=== PATIENT | male | born 1970 | race Caucasian/White ===

== ENCOUNTER 2024-05-09 09:53 | Inpatient (IN) ==
--- NOTE | 2024-04-13 13:34 | PAT Medication Instructions ---
Medication Instructions Date of Service April 13, 2024 Home Medications Medication Instructions Recorded magnesium oxide 400 mg (241.3 mg 400 mg PO HS #30 tabs 02/24/22 magnesium) tablet hydrochlorothiazide 12.5 mg tablet 12.5 mg PO QAM #90 tabs 02/07/24 metformin 500 mg tablet 500 mg PO BID #200 tabs 02/10/24 gabapentin 600 mg tablet 600 mg PO BID 90 days #180 tabs 02/18/24 tizanidine 4 mg tablet 4 mg PO TID #90 tabs 02/28/24 atorvastatin 40 mg tablet 40 mg PO QPM #90 tabs 03/16/24 lisinopril 20 mg tablet 20 mg PO QAM #90 tabs 03/21/24 carbamazepine 100 mg chewable 300 mg (3 x 100 mg) PO BID 90 days 03/28/24 tablet #540 tabs ascorbic acid (vitamin C) 500 mg capsule 500 mg PO QAM magnesium oxide 400 mg (241.3 mg magnesium) tablet 400 mg PO HS cholecalciferol (vitamin D3) 50 mcg (2,000 unit) tablet (Vitamin D3) 50 mcg PO QPM aspirin 81 mg tablet,delayed release 81 mg PO QAM cyanocobalamin (vitamin B-12) 2,000 mcg tablet,extended release (Vitamin B-12 ER) 2,000 mcg PO QAM ofatumumab 20 mg/0.4 mL subcutaneous pen injector (Kesimpta Pen) 20 mg subcut Q30D duloxetine 60 mg capsule,delayed release 60 mg PO QAM omeprazole 40 mg capsule,delayed release 40 mg PO QAM hydrochlorothiazide 12.5 mg tablet 12.5 mg PO QAM metformin 500 mg tablet 500 mg PO BID gabapentin 600 mg tablet 600 mg PO BID tizanidine 4 mg tablet 4 mg PO TID atorvastatin 40 mg tablet 40 mg PO QPM lisinopril 20 mg tablet 20 mg PO QAM carbamazepine 100 mg chewable tablet 300 mg (3 x 100 mg) PO BID meloxicam 7.5 mg tablet 7.5 - 15 mg PO DAILY PRN ASK your surgeon for instructions meloxicam 7.5 mg tablet 7.5 - 15 mg PO DAILY PRN ASK your prescriber and surgeon aspirin 81 mg tablet,delayed release 81 mg PO QAM ofatumumab 20 mg/0.4 mL subcutaneous pen injector (Kesimpta Pen) 20 mg subcut Q30D DO NOT take the morning of surgery ascorbic acid (vitamin C) 500 mg capsule 500 mg PO QAM cyanocobalamin (vitamin B-12) 2,000 mcg tablet,extended release (Vitamin B-12 ER) 2,000 mcg PO QAM hydrochlorothiazide 12.5 mg tablet 12.5 mg PO QAM metformin 500 mg tablet 500 mg PO BID lisinopril 20 mg tablet 20 mg PO QAM carbamazepine 100 mg chewable tablet 300 mg (3 x 100 mg) PO BID Take morning of surgery With a small sip of water, OTHERWISE NOTHING TO EAT OR DRINK AFTER MIDNIGHT: duloxetine 60 mg capsule,delayed release 60 mg PO QAM omeprazole 40 mg capsule,delayed release 40 mg PO QAM gabapentin 600 mg tablet 600 mg PO BID tizanidine 4 mg tablet 4 mg PO TID Take evening before surgery magnesium oxide 400 mg (241.3 mg magnesium) tablet 400 mg PO HS cholecalciferol (vitamin D3) 50 mcg (2,000 unit) tablet (Vitamin D3) 50 mcg PO QPM metformin 500 mg tablet 500 mg PO BID gabapentin 600 mg tablet 600 mg PO BID tizanidine 4 mg tablet 4 mg PO TID atorvastatin 40 mg tablet 40 mg PO QPM carbamazepine 100 mg chewable tablet 300 mg (3 x 100 mg) PO BID Other Notes If you have any questions please call us at [phone] or [phone] or [phone] or [phone]
--- NOTE | 2024-04-19 10:19 | Anesthesiology Consultation ---
Date of Service April 19, 2024 Assessment & Plan (1) Encounter for pre-operative examination: - Check BSG AM DOS - Infectious disease screening: Per assessment on 04/19/24: No known recent infectious disease contacts or current infectious disease symptoms. - Hx of concussion 03/2024: Patient reports that patient had ER visit 04/03/24 after his wheelchair "flipped backwards" causing patient to strike head on ground + LOC. ER records received. Head imaging negative and symptoms felt to be consistent with concussion. "His cervical spine is cleared by [place] C-spine rule." Patient was discharged with supportive care. > Patient reports at subsequent PAT visit 04/19/24 that he does still have some residual worsening of his baseline neck and left shoulder pain. Feels well/at baseline otherwise. Denies headache, N/V. Chart Review Chart Review: Acceptable Risk for Surgery (pending evaluation DOS) and Patient seen in Pre Admission Testing Teaching & Discussion Pre-Anesthesia Teaching/Discussion Notes: Instructed NPO after midnight before surgery,except medications with 15 cc of water. Medication instructions provided according to the PAT guidelines. History Surgery Operation Date: 05/09/24 11:35 Proposed Procedures p L4-L5 Lumbar Interbody Fusion with Interbody Cage and Posterior Instrumentation, with Spinal Cord Monitoring - Carlo Rene MD Height/Weight Height: 5 ft 7 in Weight: 104.3 kg Allergies Allergy/AdvReac Type Severity Reaction Status Date / Time No Known Allergies Allergy Verified 04/11/24 07:41 Medications Home Medications Medication Instructions Recorded Confirmed Last Taken ascorbic acid (vitamin C) 500 mg 500 mg PO QAM 05/01/20 04/11/24 02/06/24 08:00 capsule magnesium oxide 400 mg (241.3 mg 400 mg PO HS #30 tabs 02/24/22 04/11/2410/30 08:00 magnesium) tablet cholecalciferol (vitamin D3) 50 50 mcg PO QPM 08/13/22 04/11/24 02/06/24 08:00 mcg (2,000 unit) tablet (Vitamin D3) aspirin 81 mg tablet,delayed 81 mg PO QAM 10/20/22 04/11/24 02/07/24 08:00 release cyanocobalamin (vitamin B-12) 2,000 mcg PO QAM 10/20/22 04/11/24 02/06/24 08:00 2,000 mcg tablet,extended release (Vitamin B-12 ER) ofatumumab 20 mg/0.4 mL 20 mg subcut Q30D 10/20/22 04/11/24 01/23/24 08:00 subcutaneous pen injector (Kesimpta Pen) duloxetine 60 mg capsule,delayed 60 mg PO QAM 01/19/24 04/11/24 02/07/24 08:00 release hydrochlorothiazide 12.5 mg tablet 12.5 mg PO QAM #90 tabs 02/07/24 04/11/24 02/07/24 08:00 metformin 500 mg tablet 500 mg PO BID #200 tabs 02/10/24 04/11/24 Unknown gabapentin 600 mg tablet 600 mg PO BID 90 days #180 tabs 02/18/24 04/11/24 Unknown tizanidine 4 mg tablet 4 mg PO TID #90 tabs 02/28/24 04/11/24 Unknown atorvastatin 40 mg tablet 40 mg PO QPM #90 tabs 03/16/24 04/11/24 Unknown lisinopril 20 mg tablet 20 mg PO QAM #90 tabs 03/21/24 04/11/24 Unknown carbamazepine 100 mg chewable 300 mg (3 x 100 mg) PO BID 90 days 03/28/24 04/11/24 Unknown tablet #540 tabs meloxicam 7.5 mg tablet 7.5 - 15 mg PO DAILY PRN Pain 04/11/24 04/11/24 Unknown omeprazole 40 mg capsule,delayed 40 mg PO QAM #90 caps 04/14/24 Unknown release Past Medical History Medical History Cervical spinal stenosis Chronic back pain Claustrophobia Degenerative spondylolisthesis Diabetes type 2, controlled Erectile dysfunction Foot drop, right Gait abnormality Right foot drop and MS Uses wheelchair, cane, and walker GERD (gastroesophageal reflux disease) History of COVID-2021 (home test): "moderate symptoms" > resolved Hx of migraines Hyperlipidemia Hypertension Lumbar facet joint syndrome Lumbar spondylosis Multiple sclerosis Taking carbemazepine to address MS associated muscle cramps and spasms per [facility] neuro records Spinal stenosis of lumbar region Umbilical hernia Exercise / Class Metabolic Activity III < 4 Walking/Shop/Light housework (uses walker/wheelchair) Past Family History Family History Aunt Stroke Uncle Stroke Myocardial infarction Grandmother (Maternal) Diabetes Grandfather (Paternal) Diabetes Mother Unknown family medical history Denies family history of Ovarian cancer Prostate cancer Breast cancer Colorectal cancer Past Surgical History Surgical History History of anesthesia problem Awareness with MRI with remote sedation (made him very anxious) He receives sedation for annual MRIs 2/2 severe claustrophobia MRI with sedation 02/08/24 without issue. History of MRI of brain and brain stem with sedation History of MRI of cervical spine MRI brain and c-spine 02/2024 under [facility]; no issues Hx of colonoscopy Past Anesthesia History No Family Hx of Anesthesia Complications and Other (Awareness with MRI with remote sedation (made him very anxious) He receives sedation for annual MRIs 2/2 severe claustrophobia MRI with sedation 02/08/24 without issue. ) History of PONV No Hx of PONV and No Hx of Motion Sickness Social History Smoking Status: Never smoker Do You Dip or Chew Tobacco: No Hx Alcohol Use: No Hx Substance Use: No Review of Systems Patient denies chest pain, shortness of breath, fever, chills, cough, wheezing, palpitations. Physical Exam Vital Signs BP 116/77 P 85 TEMP 97.8 SP02 95%RA RESP 16 Physical Mildly decreased cervical extension range of motion. Full TMJ range of motion. TMD > 3.5 finger breaths Mallampati Score III Dentition: full upper plate Lungs: clear throughout to auscultation Cardiac: regular rate and rhythm, no murmurs noted Spine: normal Carotid arteries: negative bruit Extremities: no LE edema Lab Results Anesthesia Preop Results Results Anesthesia Widget: WBC 6.50 K/ul (4.8-10.8) 04/19/24 Hgb 14.6 g/dl (14.0-18.0) 04/19/24 Hct 43.9 % (42.0-52.0) 04/19/24 Plt 274 K/uL (130-400) 04/19/24 Na 138 mmol/L (136-145) 04/19/24 K 3.9 mmol/L (3.5-5.1) 04/19/24 Cl 105 mmol/L (98-107) 04/19/24 CO2 25 mmol/L (21-32) 04/19/24 BUN 17 mg/dl (6-23) 04/19/24 Creat 0.91 mg/dl (0.6-1.4) 04/19/24 Glucose Level 175 mg/dl (70-99(Fasting)) H 04/19/24 PT 10.2 Seconds (9.0-12.0) 04/19/24 PTT 26 Seconds (21-31) 04/19/24 INR 0.9 (0.9-1.1) 04/19/24 HA1c 6.4 % (4.5-5.6) H 04/19/24 Blood Type A Negative 04/19/24 Antibody Screen NEGATIVE 04/19/24 Testing Electrocardiogram Date: 04/03/24 SR at 85bpm. Low QRS voltage in precordial leads. Chest X-Ray Date: 09/03/23 Findings: + NAD Other Testing CT Head Date: 04/03/24 No acute intracranial change
[~2024-05-09 09:53] MED LIST: DEXAMETHASONE SOD INJ 4 MG/ML VIAL ONE; GLYCOPYRROLATE 0.2 MG/ML VIAL ONE; LIDOCAINE 2% 2 ML VIAL/AMP(20MG/ML) INFIL ONE; MIDAZOLAM HCL 1 MG/ML 2ML VIAL ONE; ONDANSETRON INJ 2 MG/ML 2 ML VIAL ONE; PROPOFOL IV EMULSION 10 MG/ML 20 ML VIAL IV ONE; ROCURONIUM BROMIDE 10 MG/ML 5 ML VIAL IV ONE; SUGAMMADEX SODIUM 200 MG/2 ML VIAL IV ONE; fentaNYL citrate PF 100 MCG/2 ML VIAL ONE
[2024-05-09] MEDS ORDERED: ONDANSETRON INJ 2 MG/ML 2 ML VIAL IV PRN ×2 (10:25→17:20)
[2024-05-09] MEDS ORDERED: ATROPINE SULFATE 0.1 MG/ML 10ML SYR IV PRN (10:25)
[2024-05-09] MEDS ORDERED: ePHEDrine sulfate 50 MG/ML AMP IV PRN (10:25)
[2024-05-09] MEDS ORDERED: HYDROmorphone INJ 2 MG/ML SYR/VIAL IV PRN (10:25)
[2024-05-09] MEDS: LR 60ML/HR IV SCH (10:42)
[2024-05-09] MEDS: LR 15ML/HR IV SCH (10:50)
--- NOTE | 2024-05-09 11:05 | History & Physical Bridge Note ---
Date of Service May 09, 2024 History & Physical Bridge Note I have examined the patient, reviewed the History & Physical and in the interval since the performance of the History & Physical I have noted the following changes of clinical significance: no changes noted
[2024-05-09] MEDS: ceFAZolin 2000MG 2,000 MG/15 ML SYR IV SCH (11:32)
[2024-05-09] MEDS ORDERED: fentaNYL citrate PF 100 MCG/2 ML VIAL ONE ×2 (12:07→14:53)
[2024-05-09] MEDS ORDERED: ePHEDrine sulfate 50 MG/ML AMP ONE (13:07)
[2024-05-09] MEDS ORDERED: PHENYLEPHRINE HCL 10 MG/ML VIAL ONE (13:07)
[2024-05-09] MEDS: THROMBIN 5000 UNITS KIT ONE (13:36)
[2024-05-09] MEDS: BUPIVACAINE/EPINEPHRINE 0.25% 1:200,000 30 ML VIAL ONE ×2 (13:36→13:39)
[2024-05-09] MEDS: GELATIN SPONGE 12-7MM ONE (13:37)
[2024-05-09] MEDS: VANCOMYCIN HCL 1000MG/20ML VIAL ONE (13:39)
[2024-05-09] MEDS ORDERED: PROPOFOL IV EMULSION 10 MG/ML 20 ML VIAL IV ONE ×9 (14:07)
[2024-05-09] MEDS: BUPIVACAINE/EPINEPHRINE 0.5% MPF 1:200,000 30 ML VIAL ONE (16:13)
--- NOTE | 2024-05-09 17:19 | Post Operative Brief Note ---
PG Immediate Post Op with CF Date of Surgery May 09, 2024 Pre & Post Diagnosis Operation Date: 05/09/24 11:35 Pre-Op Diagnosis: Degenerative Spondylolisthesis, Degenerative Lumbar Spinal Stenosis Post-Op Diagnosis: Degenerative Spondylolisthesis, Degenerative Lumbar Spinal Stenosis I identified the patient and participated in the time-out.: Yes Procedure Operation Date: 05/09/24 11:35 Actual Procedures p L4-L5 Lumbar Decompression and Fusion and Posterior Instrumentation, with Spinal Cord Monitoring - Carlo Rene MD Surgeon Carlo Rene MD Invas Tech none Estimated Blood Loss 200 Findings Consistent with Post-Op Diagnosis Specimens Specimen Description: none per surgeon Drains Moore Catheter (Moore removed at end of case with balloon intact by Jeane Sky RN. Moore drained approximately 300ml of clear yellow urine.)
[2024-05-09] MEDS ORDERED: ONDANSETRON 4 MG OD TAB PO PRN (17:20)
[2024-05-09] MEDS ORDERED: bisacodyL 10 MG SUPP PR PRN (17:20)
[2024-05-09] MEDS ORDERED: METOCLOPRAMIDE HCL INJ 5 MG/ML 2 ML VIAL IV PRN (17:20)
[2024-05-09] MEDS ORDERED: SOD PHOSPHATE/SOD BIPHOSPHATE ENEMA 132 ML BTL PR PRN (17:20)
[2024-05-09] MEDS ORDERED: DO NOT ADMINISTER FLU VACCINE PRN (17:20)
[2024-05-09] MEDS ORDERED: LORazepam 0.5 MG TAB PO PRN (17:20)
[2024-05-09] MEDS ORDERED: NALOXONE HCL 0.4 MG/1 ML VIAL/CARP IV PRN (17:20)
[2024-05-09] MEDS ORDERED: DO NOT ADMINISTER PNEUMOCOCCAL VACCINE PRN (17:20)
[2024-05-09] MEDS ORDERED: diphenhydrAMINE Capsule 25 MG CAP PO PRN (17:20)
[2024-05-09] MEDS ORDERED: FAMOTIDINE 20 MG TAB PO PRN (17:20)
[2024-05-09] MEDS ORDERED: hydrOXYzine HCl 25 MG TAB PO PRN (17:20)
[2024-05-09] MEDS ORDERED: LORazepam 2 MG/1 ML VIAL IV PRN (17:20)
[2024-05-09] MEDS ORDERED: MAGNESIUM HYDROXIDE SUSP 30 ML UDC PO PRN (17:20)
[2024-05-09] MEDS ORDERED: PROMETHAZINE 12.5 MG/50.5 ML BAG IV PRN (17:20)
[2024-05-09] MEDS ORDERED: ALUMINUM/MAGNESIUM SUSP 30 ML UDC PO PRN (17:20)
[2024-05-09] MEDS: fentaNYL citrate PF 100 MCG/2 ML VIAL IV PRN (17:36)
--- NOTE | 2024-05-09 18:46 | Anesthesiology Progress Note ---
Date of Service May 09, 2024 Anesthesia Post Procedure Vital Signs Vital Signs: Temp Pulse Resp BP Pulse Ox O2 Del Method O2 Flow Rate 05/09/24 18:30 36.9 C 88 11 L 103/76 94 Nasal Cannula 4 05/09/24 18:20 36.9 C 88 10 L 110/76 94 Nasal Cannula 4 05/09/24 18:10 36.9 C 89 17 96/73 L 94 Nasal Cannula 4 05/09/24 18:00 36.9 C 91 H 11 L 100/77 94 Nasal Cannula 4 05/09/24 17:50 36.9 C 94 H 14 114/69 93 Nasal Cannula 4 05/09/24 17:40 88 12 133/81 94 Nasal Cannula 4 05/09/24 17:30 36.9 C 94 H 14 133/92 95 Nasal Cannula 4 05/09/24 17:20 36.9 C 93 H 15 141/92 H 96 Nasal Cannula 3 05/09/24 17:10 95 H 16 136/87 95 Oxymask 5 05/09/24 17:00 95 H 15 124/93 96 Oxymask 5 05/09/24 16:50 88 18 122/88 94 Oxymask 6 05/09/24 16:42 36.7 C 88 11 L 120/75 94 Oxymask 10 05/09/24 10:23 37.1 C 92 H 20 129/93 95 Room Air Pain Intensity Lower Back: Pain Intensity: 5 Transfer of Care Handoff Completed per policy Notes Mental Status: alert / awake / arousable and participated in evaluation Patient Amnestic to Procedure: Yes Nausea / Vomiting: adequately controlled Pain: adequately controlled Airway Patency, RR, SpO2: stable & adequate BP & HR: stable & adequate Hydration State: stable & adequate Anesthetic Complications: no major complications apparent
[2024-05-09] MEDS: HYDROmorphone INJ 0.5 MG/0.5 ML SYR IV PRN (19:39)
[2024-05-09] MEDS: LACTATED RINGER'S 1,000 ML IV SCH (19:43)
[2024-05-09] MEDS: oxyCODONE/ACETAMINOPHEN 5mg/325mg TAB PO PRN (20:58)
[2024-05-09] MEDS ORDERED: DEXTROSE 50% 50 ML SYRINGE IV PRN (21:16)
[2024-05-09] MEDS ORDERED: GLUCOSE 10 TAB/TUBE PO PRN (21:16)
[2024-05-09] MEDS ORDERED: CARBOHYDRATES FOR HYPOGLYCEMIA PO PRN (21:16)
[2024-05-09] MEDS ORDERED: GLUCOSE 40% GEL 15 GM TUBE PO PRN (21:16)
[2024-05-09] MEDS ORDERED: GLUCAGON FOR INJ 1 MG VIAL SQ PRN (21:16)
--- NOTE | 2024-05-09 21:16 | Hospitalist Consultation ---
Date of Consultation May 09, 2024 Assessment & Plan (1) History of back surgery: Patient with spinal stenosis with lumbar radiculopathy s/p L4-L5 decompression and fusion performed tday 05/09/[address] Rene. Surgery was well tolerated, no complications identified. -Pain management, anti-emetics and bowel regimen per primary team -Post-operative instructions per primary team -PT/OT and discharge plan per primary team (2) Multiple sclerosis: Patient with history of primary progressive multiple sclerosis. He follows with Neurology, last seen on 12/27/23. Patient reports ambulatory dysfunction at baseline with foot drop - thought to be secondary to his underlying MS as well as nis ongoing back pain and spinal stenosis. -Continue Gabapentin 600mg po BID -Continue Carbamazepine 300mg po BID -Continue Duloxetine 60mg po qAM -Continue Tizanidine PRN pain or spasm (3) Diabetes type 2, controlled: Chronic. Overall well controlled. Last WlzT8I=1.4 on 04/19/24. Patient is compliant with his Metformin at home -May continue metformin 500mg po BID -BSG checks ordered (4) GERD (gastroesophageal reflux disease): Chronic. Stable. Patient is on Omeprazole at home -Protonix 40mg po daily while inpatient (5) Hyperlipidemia: Chronic. Stable -Patient may continue Atorvastatin 40mg po daily (6) Hypertension: Chronic. Stable -Continue HCTZ 12.5mg po daily -Continue Lisinopril 20mg po qAM History of Present Illness Reason for Consultation: post-operative medical management. Requesting Physician: Dr. Carlo Rene Attending Physician: Carlo Rene MD History of Present Illness Carlo Schmidt is a pleasant 53yo male with history of multiple sclerosis, DM, HTN, HLP and GERD s/p L4-L5 decompression and fusion performed earlier today 05/09/[address] Rene under general anesthesia. Procedure was well tolerated with no immediate complications identified. Estimated blood cllh=165gH. Patient seen at bedside. He is sitting up. Dinner tray with clear liquids is in front of him. He reports that pain is overall well controlled although he is starting to have some discomfort. He has not yet gotten up to walk. Moore catheter was removed. No UOP, BM or flatus as of yet. No additional complaints at this time. Allergies Allergy/AdvReac Type Severity Reaction Status Date / Time No Known Allergies Allergy Verified 05/09/24 10:25 Home Medications Medication Instructions Recorded Confirmed Type ascorbic acid (vitamin C) 500 mg 500 mg PO QAM 05/01/20 05/09/24 History capsule magnesium oxide 400 mg (241.3 mg 400 mg PO HS #30 tabs 02/24/22 05/09/24 Rx magnesium) tablet cholecalciferol (vitamin D3) 50 50 mcg PO QPM 08/13/22 05/09/24 History mcg (2,000 unit) tablet (Vitamin D3) aspirin 81 mg tablet,delayed 81 mg PO QAM 10/20/22 05/09/24 History release cyanocobalamin (vitamin B-12) 2,000 mcg PO QAM 10/20/22 05/09/24 History 2,000 mcg tablet,extended release (Vitamin B-12 ER) ofatumumab 20 mg/0.4 mL 20 mg subcut Q30D 10/20/22 05/09/24 History subcutaneous pen injector (Kesimpta Pen) duloxetine 60 mg capsule,delayed 60 mg PO QAM 01/19/24 05/09/24 History release hydrochlorothiazide 12.5 mg tablet 12.5 mg PO QAM #90 tabs 02/07/24 05/09/24 Rx metformin 500 mg tablet 500 mg PO BID #200 tabs 02/10/24 05/09/24 Rx gabapentin 600 mg tablet 600 mg PO BID 90 days #180 tabs 02/18/24 05/09/24 Rx atorvastatin 40 mg tablet 40 mg PO QPM #90 tabs 03/16/24 05/09/24 Rx lisinopril 20 mg tablet 20 mg PO QAM #90 tabs 03/21/24 05/09/24 Rx carbamazepine 100 mg chewable 300 mg (3 x 100 mg) PO BID 90 days 03/28/2405/09 Rx tablet #540 tabs meloxicam 7.5 mg tablet 7.5 - 15 mg PO DAILY PRN Pain 04/11/24 05/09/24 History omeprazole 40 mg capsule,delayed 40 mg PO QAM #90 caps 04/14/24 05/09/24 Rx release tizanidine 4 mg tablet 4 mg PO TID #90 tabs 04/20/24 05/09/24 Rx Patient History Medical History Gait abnormality Right foot drop and MS Uses wheelchair, cane, and walker Spinal stenosis of lumbar region Claustrophobia Lumbar spondylosis Lumbar facet joint syndrome Foot drop, right Diabetes type 2, controlled Degenerative spondylolisthesis Cervical spinal stenosis Hx of migraines History of COVID-19 2021 (home test): "moderate symptoms" > resolved Chronic back pain Umbilical hernia Erectile dysfunction GERD (gastroesophageal reflux disease) Multiple sclerosis Taking carbemazepine to address MS associated muscle cramps and spasms per [facility] neuro records Hyperlipidemia Hypertension Surgical History History of MRI of cervical spine MRI brain and c-spine 02/2024 under [facility]; no issues History of anesthesia problem Awareness with MRI with remote sedation (made him very anxious) He receives sedation for annual MRIs 10/08 severe claustrophobia MRI with sedation 02/08/24 without issue. History of MRI of brain and brain stem with sedation Hx of colonoscopy Family History Aunt Stroke Uncle Stroke Myocardial infarction Grandmother (Maternal) Diabetes Grandfather (Paternal) Diabetes Mother Unknown family medical history Denies family history of Ovarian cancer Prostate cancer Breast cancer Colorectal cancer Social History Smoking Status: Never smoker Second Hand Exposure: Yes (hx as child); Do You Dip or Chew Tobacco: No; Tobacco Cessation Education Requested by Patient: No Hx Alcohol Use: No Hx Substance Use: No Preferred Language: Persian Communication Ability: Effective Visual Impairment: No Limitations Hearing Ability: Normal 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 Beliefs That Will Affect Care: None marital status: Current Living Situation: Spouse current occupational status: disabled Other Information That Helps Us Care for You: No Feels Safe at Home: Yes Safety Concerns: Feels Safe At This Time Childhood Exposure to Second-Hand Smoke: No Diet: low carbohydrate Diet Comment: low carb Dental Care, Regularly: No Physical Activity Frequency: Does not Exercise Seatbelt Use: always Sunscreen Use: Yes Assistive Devices: Cane, Denture - Upper, Walker and Wheelchair Review of Systems Review of Systems: All systems reviewed & are unremarkable except as noted in HPI & below Physical Exam Physical Exam: General: patient resting comfortably, NAD, non-toxic in appearance, AA&O x 4 Skin: warm, dry, intact, no rashes or lesions HEENT: NC/AT, PERRL, EOMI, anicteric sclera, conjunctiva without injection, external ear normal to inspection and nontender, nares patent, moist mucus membranes, dentition intact, no oropharyngeal lesions, neck supple, trachea midline, no LAD, no thyromegaly, no JVD Heart: +S1/S2, regular, no m/r/g Lungs: equal air entry bilaterally, no rales/rhonchi/wheezes Abd: +BS, soft, NT/ND, no masses/organomegaly/ascites Ext: warm, 2+ pulses in UE/LE bilaterally, no clubbing/cyanosis or edema, TRENT stockings and SCDs in place Neuro: nonfocal, patient AA&O x 4, speech intact, no facial droop, moving all extremities on command with equal strength 5/5 Results & Data Results & Data Vital Signs (Past 12 Hours) Vital Signs Temp Pulse Pulse Resp BP Pulse Ox O2 Del Method 05/09/24 20:15 36.5 C 92 H 16 107/72 97 Nasal Cannula 05/09/24 19:45 36.8 C 95 H 16 118/69 95 Nasal Cannula 05/09/24 19:32 37.0 C 93 H 16 106/77 97 Nasal Cannula 05/09/24 19:00 36.9 C 92 H 17 120/92 97 Nasal Cannula 05/09/24 18:45 36.9 C 87 11 L 106/74 93 Nasal Cannula 05/09/24 18:30 36.9 C 88 11 L 103/76 94 Nasal Cannula 05/09/24 18:20 36.9 C 88 10 L 110/76 94 Nasal Cannula 05/09/24 18:10 36.9 C 89 17 96/73 L 94 Nasal Cannula 05/09/24 18:00 36.9 C 91 H 11 L 100/77 94 Nasal Cannula 05/09/24 17:50 36.9 C 94 H 14 114/69 93 Nasal Cannula 05/09/24 17:40 88 12 133/81 94 Nasal Cannula 05/09/24 17:30 36.9 C 94 H 14 133/92 95 Nasal Cannula 05/09/24 17:20 36.9 C 93 H 15 141/92 H 96 Nasal Cannula 05/09/24 17:10 95 H 16 136/87 95 Oxymask 05/09/24 17:00 95 H 15 124/93 96 Oxymask 05/09/24 16:50 88 18 122/88 94 Oxymask 05/09/24 16:42 36.7 C 88 11 L 120/75 94 Oxymask 05/09/24 10:23 37.1 C 92 H 20 129/93 95 Room Air O2 Flow Rate 05/09/24 20:15 2 05/09/24 19:45 2 05/09/24 19:32 4 05/09/24 19:00 4 05/09/24 18:45 4 05/09/24 18:30 4 05/09/24 18:20 4 05/09/24 18:10 4 05/09/24 18:00 4 05/09/24 17:50 4 05/09/24 17:40 4 05/09/24 17:30 4 05/09/24 17:20 3 05/09/24 17:10 5 05/09/24 17:00 5 05/09/24 16:50 6 05/09/24 16:42 10 05/09/24 10:23 Laboratory Results Laboratory Results WBC 21.90 K/ul (4.8-10.8) H 05/09/24 21:42 RBC 4.16 M/uL (4.70-6.10) L 05/09/24 21:42 Hgb 12.8 g/dl (14.0-18.0) L 05/09/24 21:42 Hct 37.6 % (42.0-52.0) L 05/09/24 21:42 MCV 90.4 fL (80.0-100.0) 05/09/24 21:42 MCH 30.8 pg (25.0-34.0) 05/09/24 21:42 MCHC 34.0 g/dL (32.0-36.0) 05/09/24 21:42 RDW Std Deviation 40.1 fL (36.4-46.3) 05/09/24 21:42 RDW Coeff of Rachel 12.2 % (11.5-14.5) 05/09/24 21:42 Plt Count 260 K/uL (130-400) 05/09/24 21:42 MPV 9.5 fL (9.4-12.4) 05/09/24 21:42 Immature Gran % (Auto) 0.5 % 05/09/24 21:42 Neut % (Auto) 86.9 % 05/09/24 21:42 Lymph % (Auto) 5.7 % 05/09/24 21:42 [place] % (Auto) 6.8 % 05/09/24 21:42 Eos % (Auto) 0.0 % 05/09/24 21:42 Baso % (Auto) 0.1 % 05/09/24 21:42 Neut # (Auto) 19.00 K/uL (1.40-6.50) H 05/09/24 21:42 Lymph # (Auto) 1.25 K/uL (1.20-3.40) 05/09/24 21:42 [place] # (Auto) 1.49 K/uL (0.11-0.59) H 05/09/24 21:42 Eos # (Auto) 0.01 K/uL (0.00-0.50) 05/09/24 21:42 Baso # (Auto) 0.03 K/uL (0.00-0.20) 05/09/24 21:42 Immature Gran # (Auto) 0.12 K/uL (0.01-0.20) 05/09/24 21:42 POC Glucose 169 mg/dl (70-99) H 05/09/24 16:50 PG Care Time/CCT Total # of Minutes Spent Total Time Spent with Patient: Total time spent is greater than 50% in coordination of care (as documented) at patient's floor/unit and/or counseling patient: Coding Level of Care Code 26280 IN/OBS CONSULT LVL 3,45M Diagnoses History of back surgery Z98.890 Multiple sclerosis G35 Diabetes type 2, controlled E11.9 GERD (gastroesophageal reflux disease) K21.9 Hyperlipidemia E78.5 Hypertension I10
[2024-05-09 22:22] LABS: Basophils # (auto) 0.03 K/uL (0.00-0.20); Basophils % (auto) 0.1 %; Eosinophils # (auto) 0.01 K/uL (0.00-0.50); Hematocrit (blood only) 37.6 % (42.0-52.0); Hemoglobin 12.8 g/dl (14.0-18.0); Immature Granulocytes # (auto) 0.12 K/uL (0.01-0.20); Immature Granulocytes % (auto) 0.5 %; Lymphocytes # (auto) 1.25 K/uL (1.20-3.40); Lymphocytes % (auto) 5.7 %; Mean Corpuscular Hemoglobin 30.8 pg (25.0-34.0); Mean Corpuscular Volume 90.4 fL (80.0-100.0); Mean Platelet Volume 9.5 fL (9.4-12.4); Monocytes # (auto) 1.49 K/uL (0.11-0.59); Monocytes % (auto) 6.8 %; Neutrophils % (auto) 86.9 %; Platelet Count 260 K/uL (130-400); RDW Coefficient of Variation 12.2 % (11.5-14.5); RDW Standard Deviation 40.1 fL (36.4-46.3); Red Blood Count 4.16 M/uL (4.70-6.10)
[2024-05-09] MEDS: HYDROmorphone INJ 1 MG/ML SYRINGE IV PRN (22:34)
[2024-05-09 22:46] LABS: Anion Gap 9 (3-11); BUN Creatinine Ratio 17.1 (10-20); Blood Urea Nitrogen 20 mg/dl (6-23); Calcium 7.7 mg/dl (8.6-10.3); Carbon Dioxide 24 mmol/L (21-32); Chloride 103 mmol/L (98-107); Creatinine Clr Calc Pharmacy 83.1 ml/min; Est GFR (African American) 81.4 ml/min; Est GFR (Non-African American) 70.3 ml/min; Glucose 186 mg/dl (70-99(Fasting)); Sodium 136 mmol/L (136-145)
[2024-05-09] MEDS: carBAMazepine 100 MG CHEW TAB PO SCH (22:49)
[2024-05-09] MEDS: ceFAZolin 1000MG 1,000 MG/7.5 ML SYR IV SCH (22:49)
[2024-05-09] MEDS: tiZANidine HCL 4 MG TABLET PO SCH (22:49)
[2024-05-09] MEDS: MAGNESIUM OXIDE 400 MG TAB PO SCH (22:49)
[2024-05-09] MEDS: DOCUSATE SODIUM/SENNA 50/8.6MG TAB PO SCH (22:49)
[2024-05-09] MEDS: GABAPENTIN 600 MG TAB PO SCH (22:49)
[2024-05-09] MEDS: metFORMIN HCL 500 MG TAB PO SCH (22:49)
[2024-05-10] MEDS: LACTATED RINGER'S 500 ML IV ONE (03:32)
[2024-05-10] MEDS: CALCIUM GLUCONATE 1,000 MG/60 ML BAG IV STA (04:02)
[2024-05-10] MEDS: POLYETHYLENE (MIRALAX) 17 GM PACK PO SCH (06:26)
[2024-05-10] MEDS: ACETAMINOPHEN 1,000 MG/100 ML VIAL IV PRN (07:55)
[2024-05-10] MEDS: hydroCHLOROthiazide 25 MG TAB PO SCH (08:14)
[2024-05-10] MEDS: DULoxetine HCL 60 MG CAP PO SCH (08:15)
[2024-05-10] MEDS: lisinopril 20 MG TAB PO SCH (08:16)
--- NOTE | 2024-05-10 09:19 | Orthopedic Progress Note ---
Date of Service May 10, 2024 Subjective Patient seen and examined, he notes some incisional pain, and also some improvement of cervical axial symptoms, no other new issues. Operative site with some limited drainage present. Impression/plan: Postoperative day 1 from L4-5 posterior instrumentation fusion decompression. We will have the patient work with occupational physical therapy today. Review of Systems All systems reviewed & are unremarkable except as noted in HPI & below. Physical Exam . Results & Data Results & Data Laboratory Results . Diagnostic Findings . PG Care Time/CCT Total # of Minutes Spent Total Time Spent with Patient: Total time spent is greater than 50% in coordination of care (as documented) at patient's floor/unit and/or counseling patient: Coding Level of Care Code 69822 Post Operative Follow-Up
--- NOTE | 2024-05-10 09:25 | Operative Report ---
PG Post Operative Report Pre & Post Diagnosis Operation Date: 05/09/24 11:35 Pre-Op Diagnosis: Degenerative Spondylolisthesis, Degenerative Lumbar Spinal Stenosis Post-Op Diagnosis: Degenerative Spondylolisthesis, Degenerative Lumbar Spinal Stenosis I identified the patient and participated in the time-out.: Yes Procedure Operation Date: 05/09/24 11:35 Actual Procedures p L4-L5 Lumbar Decompression and Fusion and Posterior Instrumentation, with Spinal Cord Monitoring - Carlo Rene MD Surgeon Carlo Rene MD Theatre Director none Estimated Blood Loss 200 Findings Consistent with Post-Op Diagnosis Specimens None Description of Procedure 1. L4-5 posterolateral arthrodesis. (60320) 2. L4-5 posterior lumbar decompression. (68597) 3. L4-5 posterior nonsegmental instrumentation, NuVasive reline. (21012) 4. Utilization of products of decompression for posterolateral arthrodesis. (27832) Patient was taken the operating room after adequate anesthesia was carefully positioned prone on the Zack frame, and underwent preprepped. I brought in fluoroscopy and marked for the location for the incision for the L4-5 level fol lowed by then prepping and draping. Midline incision was then made over the approximated area, advanced down to the spinous processes and then onto either side of the lamina, I then confirmed our location fluoroscopically. Additional dissection was then performed, this included going out to the transverse processes both sides for L4 and L5 and also the lateral aspect of the facets and into the facet of L4-5. Once this was exposed bilaterally, decortication was performed, sponges were packed. I brought in fluoroscopy and used this to locate the start point for the pedicle screws followed by first the initial high-speed bur to make the start point, gearshift probe using monitoring, tap and insertion of 6.5 millimeter screws 45 mm in length. These were first inserted at L5, and then L4 in a similar fashion without issue all having greater than 20 on the monitoring. Decompression was performed with bilateral Prem laminectomies bilateral medial facetectomies, this included moving across the inferior laminar edge of L4 and superior laminar edge of L5 and along the medial facets decompressing the canal. The bone dust from the burring and also bony pieces were then collected, these were added to the fusion materials. The seizure materials were then inserted in the posterolateral aspect after removing the sponges completing the arthrodesis. Rods were then inserted bilaterally and torqued down properly. The operative site had been irrigated during the procedure, I then placed vancomycin powder and then closed with 2 layers of 0 Vicryl sutures followed by 2-0 Vicryl sutures and mago for the skin. Sterile dressings were applied, patient tolerated procedure well was taken recovery room satisfied condition. I attest to the content of the Intraoperative Record and any orders documented therein. Any exceptions are noted below.
[2024-05-10] MEDS: PANTOprazole 40 MG TAB PO SCH (09:53)
--- NOTE | 2024-05-10 11:05 | Fluoroscopy Report ---
INTRAOPERATIVE RADIOGRAPHS CLINICAL HISTORY: L4-L5 spinal fusion. Fluoro time: 136 seconds Ka,r: 110.22 mGy FINDINGS: 4 spot fluoroscopic views of the lumbar spine are presented. The images show laminectomy an d posterior fusion at L4-L5. Interpedicular screws are in place at both levels. The orthopedic hardwa re appears intact. IMPRESSION: Intraoperative images from lumbar spinal fusion as above. Electronically signed by: Dereck Greenfield M.D. 05/10/2024 11:04 AM
--- NOTE | 2024-05-10 12:04 | Hospitalist Progress Note ---
Date of Service May 10, 2024 Assessment & Plan (1) History of back surgery: Plan: Patient with spinal stenosis with lumbar radiculopathy s/p L4-L5 decompression and fusion performed tday 05/09/[address] Rene. Surgery was well tolerated, no complications identified. -Pain management, anti-emetics and bowel regimen per primary team -Straight cath as needed until patient urinates on his own. Continue to bladder scan. -Post-operative instructions per primary team -PT/OT and discharge plan per primary team (2) Multiple sclerosis: Plan: Patient with history of primary progressive multiple sclerosis. He follows with Neurology, last seen on 12/27/23. Patient reports ambulatory dysfunction at baseline with foot drop - thought to be secondary to his underlying MS as well as nis ongoing back pain and spinal stenosis. -Continue Gabapentin 600mg po BID -Continue Carbamazepine 300mg po BID -Continue Duloxetine 60mg po qAM -Continue Tizanidine PRN pain or spasm Plan Chronic conditions: Type 2 Diabetes: Continue home Metformin dose. BSG checks ordered. A1c 6.4 GERD: PPI HLD: statin HTN: HCTZ and Lisinopril Diet: Carb consistent Code status: full code DVT prophylaxis: SCD's Disposition: surgical services. Primary team: ortho Updated with plan of care at bedside 05/10 Admission and Anticipated Discharge Date Admission Date: May 09, 2024 Subjective Patient seen and examined this morning. Patient reports to be having some issues with ambulating post surgery. He has also had issues urinating. He has had to have a straight catheter two times since his procedure. He is hopeful that he will regain some more strength today so he can go home tomorrow. Denied any other complaints. Physical Exam Constitutional: WD/WN, vitals as above Eyes: PERRL, conjunctivae normal, anicteric sclerae Respiratory: normal respiratory effort, lungs clear to auscultation Cardiovascular: RRR, no murmur, no edema Skin: no rashes, warm and dry Psychiatric: A+Ox3, euthymic affect Results & Data Results & Data Vital Signs (Past 12 Hours) Vital Signs Temp Pulse Pulse Resp BP Pulse Ox O2 Del Method 05/10/24 08:00 37.2 C 105 H 16 121/74 96 Room Air 05/10/24 06:28 36.6 C 105 H 16 119/83 95 Room Air 05/10/24 02:23 36.8 C 108 H 103/69 95 Nasal Cannula O2 Flow Rate 05/10/24 08:00 05/10/24 06:28 05/10/24 02:23 1 PG Care Time/CCT Total # of Minutes Spent Total Time Spent with Patient: Total time spent is greater than 50% in coordination of care (as documented) at patient's floor/unit and/or counseling patient: Coding Level of Care Code 76121 SUB INP/OBS CARE 2/35MIN Diagnoses History of back surgery Z98.890 Multiple sclerosis G35
--- NOTE | 2024-05-10 12:33 | Discharge Summary ---
Date of Service May 10, 2024 Admission HPI (Per Admitting) Lumbar stenosis, degenerative spondylolisthesis Principal Diagnosis Same as "Discharge Diagnosis" noted below under Discharge Instructions. Discharge Exam . Discharge Data Consultations 05/09/24 17:20 Consult Hospitalist Routine Procedures Performed Operation Date: 05/09/24 11:35 Actual Procedures p L4-L5 Lumbar Decompression and Fusion and Posterior Instrumentation, with Spinal Cord Monitoring - Carlo Rene MD Ordered Studies 05/09/24 11:35 FL lumbar spine 2-3V Routine Hospital Course (1) Degenerative spondylolisthesis: L4-5 posterior instrumentation fusion decompression (2) Degenerative lumbar spinal stenosis: PG Care Time/CCT Total # of Minutes Spent Total Time Spent with Patient: Total time spent is greater than 50% in coordination of care (as documented) at patient's floor/unit and/or counseling patient: Discharge Plan Discharge Items Patient Disposition: Home - Self-Care Reason For Visit: Degenerative Spondylolisthesis, Cervical Stenosis, Discharge Diagnosis: Lumbar stenosis, degenerative spondylolisthesis. Condition on Discharge: Good Activity: As commented below Lifting: No more than 10 pounds Bathing: May shower/bathe in 3 days Weightbearing: Full weightbearing Non-emergency contact: Surgeon Call non-emergency contact if: your pain is worsening Follow-up/Referrals: Geoffrey Mccauley, [Primary Care Provider] - Diet: Regular Addtl Attending Provider Instructions: Follow-up in 2 weeks, hydrocodone on prescribed through ambulatory chart, 1 pill every 6-8 hours supplemented with acetaminophen when needed. Please hold Hydrochlorothiazide until seen by PCP. Recommend PCP follow up within 1-2 weeks of discharge. Pending Studies at Discharge: No Stand-Alone Forms: [facility] Sm[facility] C[facility] Medications and DC Order Prescriptions: Continued metformin 500 mg tablet 500 mg PO BID Qty: 200 3RF Rx Instructions: insurance requests 100 day supply gabapentin 600 mg tablet 600 mg PO BID 90 Days Qty: 180 1RF atorvastatin 40 mg tablet 40 mg PO QPM Qty: 90 3RF lisinopril 20 mg tablet 20 mg PO QAM Qty: 90 3RF carbamazepine 100 mg tablet,chewable 300 mg PO BID 90 Days Qty: 540 1RF omeprazole 40 mg capsule,delayed release(DR/EC) 40 mg PO QAM Qty: 90 3RF Rx Instructions: TAKE ONE CAPSULE BY MOUTH IN THE MORNING tizanidine 4 mg tablet 4 mg PO TID Qty: 90 3RF Rx Instructions: TAKES ONE IN AM AND 2 QHS ascorbic acid (vitamin C) 500 mg capsule 500 mg PO QAM magnesium oxide 400 mg (241.3 mg magnesium) tablet 400 mg PO HS Qty: 30 0RF aspirin 81 mg Tablet,Delayed Release (Dr/Ec) 81 mg PO QAM cyanocobalamin (vitamin B-12) [Vitamin B-12] 2,000 mcg Tablet Extended Release 2,000 mcg PO QAM Kesimpta Pen 20 mg/0.4 mL pen injector 20 mg subcut Q30D Patient Comments: last injection 12/24/2023 cholecalciferol (vitamin D3) [Vitamin D3] 50 mcg (2,000 unit) Tablet 50 mcg PO QPM duloxetine 60 mg capsule,delayed release(DR/EC) 60 mg PO QAM Held hydrochlorothiazide 12.5 mg tablet 12.5 mg PO QAM Qty: 90 3RF Hold Instructions: Resume on 05/29/24. until seen by PCP Rx Instructions: TAKE ONE TABLET BY MOUTH DAILY meloxicam 7.5 mg tablet 7.5 - 15 mg PO DAILY MDD 2 pills PRN (Reason: Pain) Hold Instructions: Resume on 07/10/24. Rx Instructions: With meals if possible. No Action hydrocodone-acetaminophen 5-325 mg tablet 1 tab PO TID PRN (Reason: pain) Qty: 24 0RF Discharge Orders: Discharge Order (Routine); Ordered 05/13/24 Ordered By: Carlo Salas/Other Patient Handouts: Spinal Fusion, Low Back Leg Pain Causes Admission Data Admit Date/Time: 05/09/24 17:20 Attending Provider: Carlo Rene Admit Provider: Carlo Rene Primary Care Provider: Geoffrey Mccauley Other Providers: Adriel Flanagan; Dontae Alvarez; Sachin Bravo; Mitchell Sahu; Estrada Garza; Shey Garcia; Marisela Banda; Kayleen Arreola; Danielle Lamas; Donnie Wilson; Ambrocio Hampton; Brittany Chahal; Cristiano Rdz; Dontae Antonio; Corona Charles; Sylvia Rush; Toshia Ford; Toshia Larson; Maria Esther Earl; Avtar Hoskins; Garcia Mishra; Bryanna Magana; Brian Meredith; Nilton Fowler; Marlon Ribeiro; Haley Smith; Shelby Edge; Nicholas Turner; Juancarlos Joshi; Sachin Coffey; Mitchell Callahan; Olga Heath; Meron Stern; Jen Cadena; Suleman Trinidad Other Interventions: Discharge Summary Assessment (RN) Last Done: 05/13/24 10:52
--- NOTE | 2024-05-10 13:46 | Electrocardiogram Report ---
Test Reason : Blood Pressure : */* mmHG Vent. Rate : 105 BPM Atrial Rate : 105 BPM P-R Int : 156 ms QRS Dur : 80 ms QT Int : 302 ms P-R-T Axes : 52 41 18 degrees QTcB Int : 399 ms Sinus tachycardia Cannot rule out Inferior infarct , age undetermined Nonspecific ST abnormality Abnormal ECG When compared with ECG of 03-Sep-2023 16:18, Minimal criteria for Inferior infarct are now Present Nonspecific T wave abnormality, worse in Anterolateral leads Confirmed by Cristiano Mills ([id number]) on 05/10/2024 1:46:08 PM Referred By: Carlo Rene Confirmed By: Cristiano Mills
[2024-05-10] MEDS: LACTATED RINGER'S 250 ML IV ONE (18:02)
--- NOTE | 2024-05-10 18:16 | XRay Report ---
KUB HISTORY: Acute onset abdominal pain no BM/flatus since surgery COMPARISON: Lumbar spine radiographs 04/19/2024 FINDINGS: Air-filled loops of large and small bowel with mild large bowel distention measuring up to 6.5 cm. Air-filled stomach. No renal calculi. No ureteral calculi. No pneumoperitoneum or pneumatosi s. Lower lumbar fusion hardware with midline skin mago. No fracture. IMPRESSION: 1. Suggested ileus. 2. Postoperative changes of the lumbar spine. ACT 112: Negative or not required by law. The above report was generated using voice recognition software. It may contain grammatical, syntax o r spelling errors. Electronically signed by: Jarred Nunez M.D. 05/10/2024 6:14 PM
[2024-05-10] MEDS: LACTATED RINGER'S 1,000 ML IV SCH (18:25)
[2024-05-10] MEDS: ACETAMINOPHEN 500 MG TAB PO PRN (19:48)
[2024-05-10 21:05] LABS: Appearance Urine Clear (Clear); Bacteria Urine Automated None Seen (None Seen); Bilirubin Urine Negative (Negative); Blood Urine Negative (Negative); Color Urine Yellow; Epithelial Cell Urine Auto 0-2 /hpf (0-2); Glucose Urine UA Negative (Negative); Ketones Urine Trace (Negative); Leukocyte Esterase Urine 1+ (Negative); Nitrite Urine Negative (Negative); Protein Urine Negative (Negative); Specific Gravity Urine 1.019 (1.000-1.030); Urobilinogen Urine Negative (Negative)
[2024-05-10] MEDS: ATORVASTATIN 40 MG TAB PO SCH (21:17)
[2024-05-11] MEDS ORDERED: cefTRIAXone SODIUM 1,000 MG/50 ML BAG IV SCH (08:15)
--- NOTE | 2024-05-11 08:24 | Orthopedic Progress Note ---
Date of Service May 11, 2024 Subjective Patient seen and examined, notes still some incisional pain but has noticed some improvement in the lower extremities in the prior low back pain that he had with transitions has resolved. He finds that the oxycodone causes some stomach upset. He has mobilized with physical therapy and has done some limited walking in the room yesterday. No change in terms of exam, slight abdominal distention. KUB 05/10/24 HISTORY: Acute onset abdominal pain no BM/flatus since surgery COMPARISON: Lumbar spine radiographs 04/19/2024 FINDINGS: Air-filled loops of large and small bowel with mild large bowel distention measuring up to 6.5 cm. Air-filled stomach. No renal calculi. No ureteral calculi. No pneumoperitoneum or pneumatosis. Lower lumbar fusion hardware with midline skin mago. No fracture. IMPRESSION: 1. Suggested ileus. 2. Postoperative changes of the lumbar spine. Impression: Postoperative day 2 from posterior lumbar decompression and instrumentation L4-5. Incisional pain with postoperative ileus. Plan: Today I discussed the pain medication with the patient, we will have him try hydrocodone 1 or 2 pills every 6 hours, also add ketorolac every 6 hours for pain and continue with the Zanaflex. Mobilization with physical therapy, Moore still needed for now, will discuss with hospitalist regarding DVT prophylaxis temporarily. Review of Systems All systems reviewed & are unremarkable except as noted in HPI & below. Physical Exam . Results & Data Results & Data Laboratory Results . Diagnostic Findings . PG Care Time/CCT Total # of Minutes Spent Total Time Spent with Patient: Total time spent is greater than 50% in coordination of care (as documented) at patient's floor/unit and/or counseling patient: Coding Level of Care Code 74459 Post Operative Follow-Up
[2024-05-11] MEDS: cefTRIAXone SODIUM 2,000 MG/50 ML BAG IV SCH (08:59)
[2024-05-11] MEDS: KETOROLAC 30 MG/ML VIAL IV ONE (09:03)
[2024-05-11] MEDS: HYDROCODONE/ACETAMOPHEN 5/325MG TAB PO ONE (09:04)
[2024-05-11 10:02] LABS: Basophils # (auto) 0.03 K/uL (0.00-0.20); Basophils % (auto) 0.2 %; Eosinophils # (auto) 0.08 K/uL (0.00-0.50); Eosinophils % (auto) 0.5 %; Hematocrit (blood only) 35.4 % (42.0-52.0); Hemoglobin 11.7 g/dl (14.0-18.0); Immature Granulocytes # (auto) 0.09 K/uL (0.01-0.20); Immature Granulocytes % (auto) 0.5 %; Lymphocytes # (auto) 1.74 K/uL (1.20-3.40); Lymphocytes % (auto) 10.5 %; Mean Corpuscular Hemoglobin 29.7 pg (25.0-34.0); Mean Corpuscular Hgb Conc 33.1 g/dL (32.0-36.0); Mean Corpuscular Volume 89.8 fL (80.0-100.0); Mean Platelet Volume 9.6 fL (9.4-12.4); Monocytes # (auto) 2.83 K/uL (0.11-0.59); Neutrophils # (auto) 11.86 K/uL (1.40-6.50); Neutrophils % (auto) 71.3 %; Platelet Count 239 K/uL (130-400); RDW Coefficient of Variation 12.5 % (11.5-14.5); Red Blood Count 3.94 M/uL (4.70-6.10); White Blood Count 16.63 K/ul (4.8-10.8)
[2024-05-11 10:20] LABS: Calcium 7.7 mg/dl (8.6-10.3)
[2024-05-11 10:25] LABS: BUN Creatinine Ratio 18.8 (10-20); Creatinine Clr Calc Pharmacy 75.9 ml/min; Est GFR (African American) 69.7 ml/min; Est GFR (Non-African American) 60.2 ml/min
[2024-05-11] MEDS: SODIUM CHLORIDE 0.9% 1,000 ML IV SCH (12:25)
--- NOTE | 2024-05-11 14:20 | Hospitalist Progress Note ---
Date of Service May 11, 2024 Assessment & Plan (1) History of back surgery: Plan: Patient with spinal stenosis with lumbar radiculopathy s/p L4-L5 decompression and fusion performed tday 05/09/[address] Rene. Surgery was well tolerated, no complications identified. -Pain management, anti-emetics and bowel regimen per primary team -Straight cath as needed until patient urinates on his own. Continue to bladder scan. -Post-operative instructions per primary team -PT/OT and discharge plan per primary team 05/10 patient was unable to urinate on his own, also was hypotensive and tachycardic. He was given 250cc of LR fluid bolus followed by 1 bag of LR at 80ml/hr overnight Moore catheter was placed. Patient also had a KUB that was suggestive of Ileus - he is on Miralax every 6 hours per the primary team. Has passed gas 05/11 Patient was dizzy upon ambulating 05/11 - given additional 1L NSS at 125ml/hr x 1 Urinalysis + for UTI - started on Ceftriaxone 2g IV x 24hr Plan for Void trial 05/12 CBC reviewed 05/11: WBC 16.63, hgb 11.7 BMP reviewed 05/11: Sodium 133, BUN 25, Creatinine 1.33 AM CBC, BMP (2) Multiple sclerosis: Plan: Patient with history of primary progressive multiple sclerosis. He follows with Neurology, last seen on 12/27/23. Patient reports ambulatory dysfunction at baseline with foot drop - thought to be secondary to his underlying MS as well as nis ongoing back pain and spinal stenosis. -Continue Gabapentin 600mg po BID -Continue Carbamazepine 300mg po BID -Continue Duloxetine 60mg po qAM -Continue Tizanidine PRN pain or spasm Plan Chronic conditions: Type 2 Diabetes: Continue home Metformin dose. BSG checks ordered. A1c 6.4 GERD: PPI HLD: statin HTN: HCTZ and Lisinopril Diet: Carb consistent Code status: full code DVT prophylaxis: SCD's Disposition: surgical services. Primary team: ortho Updated with plan of care at bedside 05/11 Admission and Anticipated Discharge Date Admission Date: May 09, 2024 Subjective Patient seen and examined. Patient reports to have some dizziness while ambulating. He did pass gas today. Moore catheter was placed overnight to help with urinary retention. Patient denies abdominal pain. He does report back and leg pain today. Physical Exam Constitutional: WD/WN, vitals as above Eyes: PERRL, conjunctivae normal, anicteric sclerae Respiratory: normal respiratory effort, lungs clear to auscultation Cardiovascular: RRR, no murmur, no edema Gastrointestinal (Abdomen): abdomen tense, decreased bowel sounds, tenderness around hernia site Skin: no rashes, warm and dry Psychiatric: A+Ox3, euthymic affect Results & Data Results & Data Vital Signs (Past 12 Hours) Vital Signs Temp Pulse Resp BP Pulse Ox O2 Del Method 05/11/24 09:29 113 H 133/84 93 Room Air 05/11/24 09:03 Room Air 05/11/24 07:33 37.2 C 120 H 16 129/79 90 Room Air PG Care Time/CCT Total # of Minutes Spent Total Time Spent with Patient: Total time spent is greater than 50% in coordination of care (as documented) at patient's floor/unit and/or counseling patient: Coding Level of Care Code 30951 SUB INP/OBS CARE 2/35MIN Diagnoses History of back surgery Z98.890 Multiple sclerosis G35
[2024-05-11] MEDS: KETOROLAC 30 MG/ML VIAL IV PRN (16:12)
[2024-05-11] MEDS: HYDROCODONE/ACETAMOPHEN 5/325MG TAB PO PRN (21:17)
[2024-05-12 06:49] LABS: Hematocrit (blood only) 30.5 % (42.0-52.0); Hemoglobin 10.6 g/dl (14.0-18.0); Mean Corpuscular Hemoglobin 30.7 pg (25.0-34.0); Mean Corpuscular Hgb Conc 34.8 g/dL (32.0-36.0); Mean Corpuscular Volume 88.4 fL (80.0-100.0); Mean Platelet Volume 9.8 fL (9.4-12.4); Platelet Count 189 K/uL (130-400); RDW Coefficient of Variation 12.4 % (11.5-14.5); RDW Standard Deviation 39.7 fL (36.4-46.3); Red Blood Count 3.45 M/uL (4.70-6.10); White Blood Count 13.03 K/ul (4.8-10.8)
[2024-05-12 07:07] LABS: BUN Creatinine Ratio 18.4 (10-20); Calcium 7.5 mg/dl (8.6-10.3); Potassium 3.9 mmol/L (3.5-5.1)
--- NOTE | 2024-05-12 11:26 | Hospitalist Progress Note ---
Date of Service May 12, 2024 Assessment & Plan (1) History of back surgery: Plan: Patient with spinal stenosis with lumbar radiculopathy s/p L4-L5 decompression and fusion performed tday 05/09/[address] Rene. Surgery was well tolerated, no complications identified. -Pain management, anti-emetics and bowel regimen per primary team -Straight cath as needed. Continue to bladder scan. -Post-operative instructions per primary team -PT/OT and discharge plan per primary team 05/10 patient was unable to urinate on his own, also was hypotensive and tachycardic. He was given 250cc of LR fluid bolus followed by 1 bag of LR at 80ml/hr overnight Moore catheter was placed 05/10, removed 05/12. Able to void on own. Patient also had a KUB that was suggestive of Ileus - he is on Miralax every 6 hours per the primary team. Has passed gas 05/11 and had a BM 05/12 Patient was dizzy upon ambulating 05/11 - given additional 1L NSS at 125ml/hr x 1 Urinalysis + for UTI - started on Ceftriaxone 2g IV x 24hr Follow up urine culture negative - patient will not require abx at time of discharge. Can continue while in hospital CBC reviewed 05/12: WBC 13.03, hgb 10.6 BMP reviewed 05/12: Sodium 135, BUN 25, Creatinine 1.03 (2) Multiple sclerosis: Plan: Patient with history of primary progressive multiple sclerosis. He follows with Neurology, last seen on 12/27/23. Patient reports ambulatory dysfunction at baseline with foot drop - thought to be secondary to his underlying MS as well as nis ongoing back pain and spinal stenosis. -Continue Gabapentin 600mg po BID -Continue Carbamazepine 300mg po BID -Continue Duloxetine 60mg po qAM -Continue Tizanidine PRN pain or spasm Plan Chronic conditions: Type 2 Diabetes: Continue home Metformin dose. BSG checks ordered. A1c 6.4 GERD: PPI HLD: statin HTN: HCTZ and Lisinopril Diet: Carb consistent Code status: full code DVT prophylaxis: SCD's Disposition: surgical services. Primary team: ortho Updated with plan of care at bedside 05/12 Admission and Anticipated Discharge Date Admission Date: May 09, 2024 Subjective Patient seen and examined this morning. Patient complaining of back pain. Still feeling weak when working with therapy. Patient's was bringing in brace for his foot drop to help assist with ambulation. Moore catheter removed and patient is able to urinate on his own. Patient has had BM as well. Physical Exam 2 Constitutional: WD/WN, vitals as above Eyes: PERRL, conjunctivae normal, anicteric sclerae Respiratory: normal respiratory effort, lungs clear to auscultation Cardiovascular: RRR, no murmur, no edema Skin: no rashes, warm and dry Psychiatric: A+Ox3, euthymic affect Results & Data Results & Data Vital Signs (Past 12 Hours) Vital Signs Temp Pulse Resp BP Pulse Ox O2 Del Method 05/12/24 07:39 36.6 C 98 H 18 138/86 95 Room Air Laboratory Results 05/12/24 06:17 05/12/24 06:17 PG Care Time/CCT Total # of Minutes Spent Total Time Spent with Patient: Total time spent is greater than 50% in coordination of care (as documented) at patient's floor/unit and/or counseling patient: Coding Level of Care Code 20203 SUB INP/OBS CARE 2/35MIN Diagnoses History of back surgery Z98.890 Multiple sclerosis G35
--- NOTE | 2024-05-12 15:35 | Orthopedic Progress Note ---
Date of Service May 12, 2024 Subjective Patient seen and examined, he notes still some incisional pain but it is improved versus what it was the last 2 days. He still is having some stretching difficulties involved his right leg. Patient notes absence of the prior preoperative lumbar transitional pain. Incision site is unremarkable with minimal to no drainage present, no findings to suggest infection. No focal change in his neurologic status distally. Impression/plan: Patient is day 3 status post L4-5 posterior instrumentation fusion. We will have the patient mobilized with physical therapy today, and we will recheck with the hospitalist, if he clears physical therapy he will be able to discharge home with hydrocodone as the pain medication ordered. Review of Systems All systems reviewed & are unremarkable except as noted in HPI & below. Physical Exam . Results & Data Results & Data Laboratory Results . Diagnostic Findings . PG Care Time/CCT Total # of Minutes Spent Total Time Spent with Patient: Total time spent is greater than 50% in coordination of care (as documented) at patient's floor/unit and/or counseling patient: Coding Level of Care Code 58519 Post Operative Follow-Up
[2024-05-13 07:20] VITALS: BP 148/98; RESP 16; TEMP 98.1; O2SAT 95
--- NOTE | 2024-05-13 08:29 | Orthopedic Progress Note ---
Date of Service May 13, 2024 Assessment & Plan (1) History of back surgery: (2) Degenerative lumbar spinal stenosis: (3) Foot drop, right: (4) Gait abnormality: Plan S/P Lumbar Decompression, MS possible flare, back pain improving monitor neuro status, appears stable from prior days, has been instructed on heel cord stretching by PT ambulate and mobilize as tolerated pain control hydrocodone and tizanidine appreciate hospitalist service input discharge pending progress with PT Subjective Patient is POD 4 s/p lumbar decompression and fusion, hx of MS. Slow progress with PT given his right foot spasticity, unable to wear AFO. He has not had any neurologic changes over the past few days. Reports his incisional pain is improving, does not report any numbness or saddle anesthesia. He has had a BM and now reports he is voiding normally with normal sensation. States he ambulates some at baseline but also uses a wheelchair. Review of Systems All systems reviewed & are unremarkable except as noted in HPI & below. Physical Exam . RLE 5/5 psoas, quad, tib ant, EHL, GS LLE right ankle spatisicity sensation at baseline BLE Incision c/d/i, no drainage or erythema Results & Data Results & Data Laboratory Results . Diagnostic Findings . PG Care Time/CCT Total # of Minutes Spent Total Time Spent with Patient: Total time spent is greater than 50% in coordination of care (as documented) at patient's floor/unit and/or counseling patient: Coding Level of Care Code 46489 Post Operative Follow-Up Diagnoses History of back surgery Z98.890 Degenerative lumbar spinal stenosis M48.061 Foot drop, right M21.371 Gait abnormality R26.9
--- NOTE | 2024-05-13 10:29 | Hospitalist Progress Note ---
Date of Service May 13, 2024 Assessment & Plan (1) History of back surgery: Plan: Patient with spinal stenosis with lumbar radiculopathy s/p L4-L5 decompression and fusion performed tday 05/09/[address] Rene. Surgery was well tolerated, no complications identified. -Pain management, anti-emetics and bowel regimen per primary team -Straight cath as needed. Continue to bladder scan. -Post-operative instructions per primary team -PT/OT and discharge plan per primary team 05/10 patient was unable to urinate on his own, also was hypotensive and tachycardic. He was given 250cc of LR fluid bolus followed by 1 bag of LR at 80ml/hr overnight Moore catheter was placed 05/10, removed 05/12. Able to void on own. Patient also had a KUB that was suggestive of Ileus - he is on Miralax every 6 hours per the primary team. Has passed gas 05/11 and had a BM 05/12 Patient was dizzy upon ambulating 05/11 - given additional 1L NSS at 125ml/hr x 1 Urinalysis + for UTI - started on Ceftriaxone 2g IV x 24hr Follow up urine culture negative - patient will not require abx at time of discharge. Can continue while in hospital CBC reviewed 05/12: WBC 13.03, hgb 10.6 BMP reviewed 05/12: Sodium 135, BUN 25, Creatinine 1.03 (2) Multiple sclerosis: Plan: Patient with history of primary progressive multiple sclerosis. He follows with Neurology, last seen on 12/27/23. Patient reports ambulatory dysfunction at baseline with foot drop - thought to be secondary to his underlying MS as well as nis ongoing back pain and spinal stenosis. -Continue Gabapentin 600mg po BID -Continue Carbamazepine 300mg po BID -Continue Duloxetine 60mg po qAM -Continue Tizanidine PRN pain or spasm Plan Chronic conditions: Type 2 Diabetes: Continue home Metformin dose. BSG checks ordered. A1c 6.4 GERD: PPI HLD: statin HTN: Resume Lisinopril upon discharge. Hold HCTZ until seen by PCP. Diet: Carb consistent Code status: full code DVT prophylaxis: SCD's Disposition: surgical services. Primary team: ortho Patient stable for discharge from medical standpoint. Please call with questions or concerns. Admission and Anticipated Discharge Date Admission Date: May 09, 2024 Subjective Patient seen and examined this morning. Patient doing well today. He is able to urinate on his own and has had several BM's. He reports decreased appetite but hopeful this will resolve upon discharge. Patients BP was elevated this morning so home dose of Lisinopril resumed. Physical Exam Constitutional: WD/WN, vitals as above Eyes: PERRL, conjunctivae normal, anicteric sclerae Respiratory: normal respiratory effort, lungs clear to auscultation Cardiovascular: RRR, no murmur, no edema Skin: no rashes, warm and dry Psychiatric: A+Ox3, euthymic affect Results & Data Results & Data Vital Signs (Past 12 Hours) Vital Signs Temp Pulse Resp BP Pulse Ox O2 Del Method 05/13/24 07:19 36.7 C 100 H 16 148/98 H 95 Room Air PG Care Time/CCT Total # of Minutes Spent Total Time Spent with Patient: Total time spent is greater than 50% in coordination of care (as documented) at patient's floor/unit and/or counseling patient: Coding Level of Care Code 90172 SUB INP/OBS CARE 2/35MIN Diagnoses History of back surgery Z98.890 Multiple sclerosis G35
[2024-05-13 10:52] VITALS: PULSE 102
--- NOTE | 2024-05-14 10:11 | Coding Query ---
Your help is needed for correct coding of this account; please clarify if the patients Post-operative Ileus was: ( ) expected out of the surgery ( ) unexpected complication from the surgery ( )other please specify Thank you BRANDY Bah CCS
--- NOTE | 2024-05-22 06:23 | Coding Query ---
Your help is needed for correct coding of this account; please clarify if the patients Post-operative Ileus was: ( please see 05/13 progress note) ( x) expected out of the surgery ( ) unexpected complication from the surgery ( )other please specify Thank you BRANDY Bah CCS
== END 2024-05-13 12:38 | disposition home or self-care (01) | DRG 460 ==
LOC: ASU 09:53 → PACUINP 17:20 → 3E 19:30
DX: R33.9 Retention of urine, unspecified; K56.7 Ileus, unspecified; E78.5 Hyperlipidemia, unspecified; Z99.3 Dependence on wheelchair; M21.371 Foot drop, right foot; M43.16 Spondylolisthesis, lumbar region; M54.16 Radiculopathy, lumbar region; K21.9 Gastro-esophageal reflux disease without esophagitis; N39.0 Urinary tract infection, site not specified; E11.9 Type 2 diabetes mellitus without complications; M48.061 Spinal stenosis, lumbar region without neurogenic claudication; G35 Multiple sclerosis; I10 Essential (primary) hypertension